=== PATIENT | female | born 1955 | race Caucasian/White ===

== ENCOUNTER → 2016-03-07 | Outpatient (CLI) | payer BC ==
--- NOTE | 2016-03-07 09:23 | BD ---
EXAMINATION TYPE: MG DEXA axial skeleton. DATE OF EXAM: 03/07/2016 9:12 AM COMPARISON: 12.30.2012 CLINICAL HISTORY: Z78.0 POST MENOPAUSAL Height: 63 Weight: 136 FRAX RISK QUESTIONS: Alcohol (3 or more units per day): NO Family History (Parent hip fracture): NO Glucocorticoids (More than 3mos): NO (Ex: prednisone, prednisolone, methylprednisolone, dexamethasone, and hydrocortisone). History of Fracture in Adulthood: NO Secondary Osteoporosis: 1. Type 1 Diabetes: NO 2. Hyperthyroidism: NO 3. Menopause before 45: NO 4. Malnutrition: NO 5. Chronic liver disease: NO Rheumatoid Arthritis: NO Current Tobacco Use: NO RISK FACTORS HISTORY OF: Family History of Osteoporosis: NONE KNOWN Smoke tobacco: NO Drink Alcohol: RARELY Active: YES Diet low in dairy products/other sources of calcium: MAY BE A BIT LOW Postmenopausal woman: 49 Adrenal Insufficiency: NO MEDICATIONS: Thyroid Medications: YES Which medication: SYNTHROID How Lon YRS Additional Medications: CALCIUM AND VIT D, ATIVAN, STATINS FOR CHOLESTEROL Additional History: HYPO THYROID, CHOLESTEROL MEDS EXAM MEASUREMENTS: Bone mineral densitometry was performed using the [employer] System. Bone mineral density as measured about the Lumbar spine is: ----- L1-L4(G/cm2): 1.100 T Score Values are as follows: ----- L1: -0.5 ----- L2: -0.6 ----- L3: -0.8 ----- L4: -0.8 ----- L1-L4: -0.7 Bone mineral density has: Decreased -1.3% since study of: 12.30.2012 Bone mineral density about the R hip (g/cm2): 0.900 Bone mineral density about the L hip (g/cm2): 0.962 T Score values are as follows: -----R Neck: -1.0 -----L Neck: -0.5 -----R Intertrochanter: -1.2 -----L Intertrochanter: -1.1 Bone mineral density has: Decreased -1.4% since study of: 12.30.2012 FRAX%'S: FOR MAJOR OSTEOPOROTIC FX: 7.4%.....FOR HIP FX: 0.5% PROBABILITY OF FX IN 10 YRS TI ME IMPRESSION: Osteopenia (T Score between -2.5 and -1 as noted by T score values There is slightly increased risk of fracture and the patient may be considered for treatment. Re-Screen 1-2 years. FOR BOTH HIPS AT INTERTROCHANTER SITES ONLY NOTE: T-SCORE=SD OF THE YOUNG ADULT MEAN.
--- NOTE | 2016-03-10 07:36 | MM ---
Reason for exam: screening (asymptomatic). Last mammogram was performed 1 year and 1 month ago. History: Patient is postmenopausal. Family history of breast cancer in paternal aunt at age 40. MG discontinued stereo core RT of the right breast, March 22, 2014. Benign US biopsy breast VAD RT of the right breast, March 07, 2014. Physical Findings: A clinical breast exam by your physician is recommended on an annual basis and results should be correlated with mammographic findings. MG 3D Screening Mammo W/Cad Bilateral CC and MLO view(s) were taken. Prior study comparison: February 16, 2015, bilateral MG 3d diag mammo w/cad PANTERA. September 05, 2014, right breast MG diagnostic mammo RT w CAD. March 07, 2014, right breast MG diagnostic mammo RT wo CAD. February 16, 2014, bilateral MG screening mammo w CAD. The breast tissue is heterogeneously dense. This may lower the sensitivity of mammography. Finding: There is a 10 mm circumscribed oval mass in the upper inner quadrant, posterior position of the left breast. Previous mammotome biopsy in the right breast. There is a chronic nodularity in the right axilla. Asymmetric breast tissue in the left anterior position is stable. New finding since February 16, 2015, September 05, 2014, March 07, 2014, and February 16, 2014. ASSESSMENT: Incomplete: need additional imaging evaluation, BI-RAD 0 RECOMMENDATION: Ultrasound of the left breast. [facility] will attempt to contact patient to return for ultrasound.
== END | disposition home or self-care (01) ==
LOC: RADMAMWWP 08:08
PROVIDERS: ATTEND Obstetrics & Gynecology
DX: Z12.31 Encounter for screening mammogram for malignant neoplasm of breast (principal); R92.2 Inconclusive mammogram; M85.80 Other specified disorders of bone density and structure, unspecified site; Z78.0 Asymptomatic menopausal state
CPT/HCPCS: 77080; 77052; 77063; G0202

== ENCOUNTER → 2016-03-27 | Outpatient (CLI) | payer BC ==
--- NOTE | 2016-03-27 09:01 | USB ---
Reason for exam: additional evaluation requested from abnormal screening. History: Patient is postmenopausal. Family history of breast cancer in paternal aunt at age 40. MG discontinued stereo core RT of the right breast, March 22, 2014. Benign US biopsy breast VAD RT of the right breast, March 07, 2014. Physical Findings: Nurse did not find any significant physical abnormalities on exam. US Breast Workup LT Left breast ultrasound including all four quadrants, the retroareolar region and axilla demonstrates a 0.3 x 0.4 x 0.3cm oval, solid, hyperechoic lesion at 12 o'clock, lipoma at 12 o'clock. These results were verbally communicated with the patient and result sheet given to the patient on 03/27/16. ASSESSMENT: Probably benign, BI-RAD 3 RECOMMENDATION: Follow-up diagnostic mammogram and ultrasound of the left breast in 6 months.
== END | disposition home or self-care (01) ==
LOC: RADUSWWP 06:58
PROVIDERS: ATTEND Obstetrics & Gynecology
DX: R92.8 Other abnormal and inconclusive findings on diagnostic imaging of breast (principal)

== ENCOUNTER → 2016-10-09 | Outpatient (CLI) | payer BC, OTHER ==
--- NOTE | 2016-10-09 09:36 | MM ---
Reason for exam: follow-up at short interval from prior study. Last mammogram was performed 7 months ago. History: Patient is postmenopausal. Family history of breast cancer in paternal aunt at age 40. MG discontinued stereo core RT of the right breast, March 22, 2014. Benign US biopsy breast VAD RT of the right breast, March 07, 2014. Physical Findings: Nurse did not find any significant physical abnormalities on exam. MG 3D Diag Mammo W/Cad LT CC and MLO view(s) were taken of the left breast. Prior study comparison: March 27, 2016, left breast US breast workup LT. March 07, 2016, bilateral MG 3d screening mammo w/cad. February 16, 2015, bilateral MG 3d diag mammo w/cad PANTERA. The breast tissue is heterogeneously dense. This may lower the sensitivity of mammography. No significant new findings when compared with previous films. These results were verbally communicated with the patient and result sheet given to the patient on 10/09/16. ASSESSMENT: Benign, BI-RAD 2 RECOMMENDATION: Return to routine screening mammogram schedule for both breasts. Back on schedule for March 2017.
--- NOTE | 2016-10-09 09:38 | USB ---
Reason for exam: follow-up at short interval from prior study. History: Patient is postmenopausal. Family history of breast cancer in paternal aunt at age 40. MG discontinued stereo core RT of the right breast, March 22, 2014. Benign US biopsy breast VAD RT of the right breast, March 07, 2014. US Breast LT Left breast ultrasound includes all four quadrants, the retroareolar region and axilla. Finding demonstrates no cystic or solid lesion seen. These results were verbally communicated with the patient and result sheet given to the patient on 10/09/16. ASSESSMENT: Negative, BI-RAD 1 RECOMMENDATION: Return to routine screening mammogram schedule for both breasts. Back on schedule for March 2017.
== END | disposition home or self-care (01) ==
LOC: RADMAMWWP 08:04
PROVIDERS: ATTEND Family Medicine
DX: N63 Unspecified lump in breast (principal)
CPT/HCPCS: 76641; G0206; G0279

== ENCOUNTER → 2017-04-22 | Outpatient (CLI) | payer OTHER ==
--- NOTE | 2017-04-22 09:41 | MM ---
Reason for exam: follow-up at short interval from prior study. Last mammogram was performed 6 months ago. History: Patient is postmenopausal. Family history of breast cancer in paternal aunt at age 40. MG discontinued stereo core RT of the right breast, March 22, 2014. Benign US biopsy breast VAD RT of the right breast, March 07, 2014. Physical Findings: Nurse did not find any significant physical abnormalities on exam. MG 3D Diag Mammo W/Cad PANTERA Bilateral CC and MLO view(s) were taken. Prior study comparison: October 09, 2016, left breast MG 3d diag mammo w/cad LT. March 07, 2016, bilateral MG 3d screening mammo w/cad. The breast tissue is heterogeneously dense. This may lower the sensitivity of mammography. Previous mammotome biopsy in the right breast. There is no discrete abnormality. These results were verbally communicated with the patient and result sheet given to the patient on 04/22/17. ASSESSMENT: Benign, BI-RAD 2 RECOMMENDATION: Routine screening mammogram of both breasts in 1 year. Manage on a clinical basis with regard to right palpable.
--- NOTE | 2017-04-22 09:43 | USB ---
Reason for exam: follow-up at short interval from prior study. History: Patient is postmenopausal. Family history of breast cancer in paternal aunt at age 40. MG discontinued stereo core RT of the right breast, March 22, 2014. Benign US biopsy breast VAD RT of the right breast, March 07, 2014. US Breast RT Right breast ultrasound includes all four quadrants, the retroareolar region and axilla. Finding demonstrates a 1.7 x 1.3 x 0.9cm oval, lobular, solid lesion at 12 o'clock stable from 2013 presumed benign lipoma, a 0.4 x 0.4 x 0.3cm oval, node at 9 o'clock benign lymph node and multiple benign lymph nodes at the axilla. These results were verbally communicated with the patient and result sheet given to the patient on 04/22/17. ASSESSMENT: Benign, BI-RAD 2 RECOMMENDATION: Routine screening mammogram of both breasts in 1 year. Manage on a clinical basis with regard to right axilla palpable.
== END | disposition home or self-care (01) ==
LOC: RADMAMWWP 08:16
PROVIDERS: ATTEND Obstetrics & Gynecology
DX: N63.12 Unspecified lump in the right breast, upper inner quadrant (principal)
CPT/HCPCS: 77066; 76641; G0279

== ENCOUNTER → 2018-04-18 | Outpatient (CLI) | payer OTHER | END | disposition home or self-care (01) | LOC: RADXRMAIN 11:29 | PROVIDERS: ATTEND Nurse Practitioner Family | DX: Z53.9 Procedure and treatment not carried out, unspecified reason (principal) ==

== ENCOUNTER → 2018-04-20 | Outpatient (CLI) | payer OTHER ==
--- NOTE | 2018-04-20 18:31 | CT ---
EXAMINATION TYPE: CT abdomen pelvis wo con DATE OF EXAM: 04/20/2018 COMPARISON: None HISTORY: Right side flank pain and hematuria. CT DLP: 651 mGycm Automated exposure control for dose reduction was used. TECHNIQUE: Helical acquisition of images was performed from the lung bases through the pelvis. FINDINGS: Within the limitations of noncontrast CT the following findings are noted. LUNG BASES: No significant abnormality is appreciated. LIVER/GB: No significant abnormality is appreciated. PANCREAS: No significant abnormality is seen. SPLEEN: No significant abnormality is seen. ADRENALS: No significant abnormality is seen. KIDNEYS: No significant abnormality is seen. Bilateral parapelvic cysts are noted, but no hydronephro sis or hydroureter. FREE AIR: No free air is visualized RETROPERITONEAL ADENOPATHY: None visualized REPRODUCTIVE ORGANS: No significant abnormality is seen URINARY BLADDER: No significant abnormality is seen. PELVIC ADENOPATHY: None visualized. OSSEOUS STRUCTURES: No significant abnormality is seen. BOWEL: No significant abnormality is seen. IMPRESSION: NO ACUTE PROCESS.
--- NOTE | 2018-04-21 08:08 | XR ---
EXAMINATION TYPE: XR lumbar spine 2 or 3V DATE OF EXAM: 04/20/2018 CLINICAL HISTORY: Low back pain after fall TECHNIQUE: Frontal and lateral views of the lumbar spine were obtained COMPARISON: None FINDINGS: There are 5 lumbar type vertebral bodies identified. There is a mild dextroscoliosis of th e lumbar spine may could be positional. Mild multilevel degenerative changes are seen at L4-L5 and L5 -S1 as intervertebral disc space narrowing and facet arthropathy. The lumbar spine shows satisfactor y alignment without evidence of acute fracture or dislocation. Vertebral body heights and disk space heights are within normal limits. The overlying soft tissue appears unremarkable. IMPRESSION: No acute fracture or dislocation is seen in the lumbar spine. Mild multilevel degenerati ve disc disease of the lower lumbar spine and slight dextroscoliosis that could be positional.
== END | disposition home or self-care (01) ==
LOC: RADCTMAIN 17:13
PROVIDERS: ATTEND Physician Assistant
DX: Z09 Encounter for follow-up examination after completed treatment for conditions other than malignant neoplasm (principal); Z87.448 Personal history of other diseases of urinary system
CPT/HCPCS: 72100; 74176

== ENCOUNTER → 2018-05-13 | Outpatient (CLI) | payer OTHER ==
--- NOTE | 2018-05-13 09:25 | BD ---
EXAMINATION TYPE: Axial Bone Density DATE OF EXAM: 05/13/2018 COMPARISON: 03.07.2016 DEXA bone scan. CLINICAL HISTORY: 63 YR OLD FEMALE....ICD-10 CODE: Z78.0 POST CHARLES W/O HRT Height: 63.5 Weight: 135 FRAX RISK QUESTIONS: NOTHING TO NOTE HERE RISK FACTORS HISTORY OF: Family History of Osteoporosis: UNSURE Diet low in dairy products/other sources of calcium: YES, A BIT Postmenopausal woman: YES AT AGE 49 YR OLD MEDICATIONS: Thyroid Medications: YES, SYNTHROID, FOR ABOUT 12 YRS Additional Medications: ATIVAN, PRN, STATINS FOR CHOLESTEROL, VIT D AND MULTI VAMIN Additional History: CHOLESTEROL, EXAM MEASUREMENTS: Bone mineral densitometry was performed using the [employer] System. Bone mineral density as measured about the Lumbar spine is: ----- L1-L4(G/cm2): 1.037 T Score Values are as follows: ----- L1: -1.0 ----- L2: -1.6 ----- L3: -1.2 ----- L4: -1.2 ----- L1-L4: -1.2 Bone mineral density has: Decreased -6.0% since study of: 03.07.2016 Bone mineral density about the R hip (g/cm2): 0.909 Bone mineral density about the L hip (g/cm2): 0.893 T Score values are as follows: -----R Neck: -1.1 -----L Neck: -0.9 -----R Total: -0.8 -----L Total: -0.9 Bone mineral density has: Decreased -2.6% since study of: 03.07.2016 FRAX%s: THERE IS A 7.8% CHANCE FOR A MAJOR OSTEOPOROTIC FX AND A 0.6% FOR HIP .....PROBABILITY OF F X IN 10 YRS TIME IMPRESSION: Osteopenia (T Score between -2.5 and -1) remains present in the low back and is now present femoral n ashlee level right hip. Bone density noted decreased or diminished from prior. There remains slightly increased risk of fracture and the patient may be considered for treatment. Re-Screen 2-5 years. NOTE: T-SCORE=SD OF THE YOUNG ADULT MEAN.
--- NOTE | 2018-05-14 10:12 | MM ---
Reason for exam: screening (asymptomatic). Last mammogram was performed 1 year and 1 month ago. History: Patient is postmenopausal. Family history of breast cancer in paternal aunt at age 40. MG discontinued stereo core RT of the right breast, March 22, 2014. Benign US biopsy breast VAD RT of the right breast, March 07, 2014. Physical Findings: A clinical breast exam by your physician is recommended on an annual basis and results should be correlated with mammographic findings. MG 3D Screening Mammo W/Cad Bilateral CC and MLO view(s) were taken. Prior study comparison: April 22, 2017, bilateral MG 3d diag mammo w/cad PANTERA. October 09, 2016, left breast MG 3d diag mammo w/cad LT. The breast tissue is heterogeneously dense. This may lower the sensitivity of mammography. No significant changes when compared with prior studies. ASSESSMENT: Benign, BI-RAD 2 RECOMMENDATION: Routine screening mammogram of both breasts in 1 year.
== END | disposition home or self-care (01) ==
LOC: RADMAMWWP 08:12
PROVIDERS: ATTEND Obstetrics & Gynecology
DX: Z12.31 Encounter for screening mammogram for malignant neoplasm of breast (principal); M85.851 Other specified disorders of bone density and structure, right thigh; M85.88 Other specified disorders of bone density and structure, other site; Z78.0 Asymptomatic menopausal state; Z80.3 Family history of malignant neoplasm of breast
CPT/HCPCS: 77063; 77067; 77080

== ENCOUNTER → 2018-10-15 | Outpatient (CLI) | payer OTHER ==
--- NOTE | 2018-10-15 11:38 | CT ---
EXAMINATION TYPE: CT abdomen pelvis wo con DATE OF EXAM: 10/15/2018 COMPARISON: 04/20/2018 HISTORY: Lt flank pain, now moved to the Rt side CT DLP: 275.8 mGycm Automated exposure control for dose reduction was used. TECHNIQUE: Helical acquisition of images was performed from the lung bases through the pelvis. FINDINGS: LUNG BASES: No significant abnormality is appreciated. LIVER/GB: No significant abnormality is appreciated. PANCREAS: No significant abnormality is seen. SPLEEN: No significant abnormality is seen. ADRENALS: No significant abnormality is seen. KIDNEYS: No nephrolithiasis. No hydronephrosis. Bilateral parapelvic cysts. FREE AIR: No free air is visualized RETROPERITONEAL ADENOPATHY: None visualized REPRODUCTIVE ORGANS: No significant abnormality is seen URINARY BLADDER: No significant abnormality is seen. PELVIC ADENOPATHY: None visualized. OSSEOUS STRUCTURES: No significant abnormality is seen. BOWEL: No significant abnormality is seen. IMPRESSION: NO ACUTE PROCESS WITHIN THE ABDOMEN OR PELVIS. NO NEPHROLITHIASIS.
== END ==
LOC: RADCTMAIN 09:52
PROVIDERS: ATTEND Family Medicine
DX: R10.9 Unspecified abdominal pain (principal)
CPT/HCPCS: 74176

== ENCOUNTER → 2019-05-07 | Outpatient (CLI) | payer MEDICARE ==
--- NOTE | 2019-05-10 08:28 | MM ---
Reason for exam: screening (asymptomatic). Last mammogram was performed 1 year ago. History: Patient is postmenopausal. Family history of breast cancer in paternal aunt at age 40. MG discontinued stereo core RT of the right breast, March 22, 2014. Benign US biopsy breast VAD RT of the right breast, March 07, 2014. Physical Findings: A clinical breast exam by your physician is recommended on an annual basis and results should be correlated with mammographic findings. MG 3D Screening Mammo W/Cad Bilateral CC and MLO view(s) were taken. Prior study comparison: May 13, 2018, bilateral MG 3d screening mammo w/cad. April 22, 2017, bilateral MG 3d diag mammo w/cad PANTERA. The breast tissue is heterogeneously dense. This may lower the sensitivity of mammography. Previous mammotome biopsy in the right breast. There is chronic nodularity in the right breast. 8 o'clock focal asymmetry incompletely disperses in the right on 3D images, and looks more defined from priors. ASSESSMENT: Incomplete: need additional imaging evaluation, BI-RAD 0 RECOMMENDATION: Special view mammogram of the right breast. (3D) If lesion persists on supplemental views, image directed ultrasound is recommended. [facility] will attempt to contact patient to return for supplemental views and ultrasound if indicated.
== END | disposition home or self-care (01) ==
LOC: RADMAMWWP 10:52
PROVIDERS: ATTEND Family Medicine
DX: Z12.31 Encounter for screening mammogram for malignant neoplasm of breast (principal)
CPT/HCPCS: 77063; 77067

== ENCOUNTER → 2019-05-13 | Outpatient (CLI) | payer MEDICARE ==
--- NOTE | 2019-05-13 14:18 | MM ---
Reason for exam: additional evaluation requested from abnormal screening. Last mammogram was performed less than 1 month ago. History: Patient is postmenopausal and history of other cancer. Family history of breast cancer in paternal aunt at age 40. MG discontinued stereo core RT of the right breast, March 22, 2014. Benign US biopsy breast VAD RT of the right breast, March 07, 2014. Physical Findings: Nurse did not find any significant physical abnormalities on exam. MG 3D Work Up W/Cad RT Spot compression CC, spot compression MLO, and ML view(s) were taken of the right breast. Prior study comparison: May 07, 2019, bilateral MG 3d screening mammo w/cad. May 13, 2018, bilateral MG 3d screening mammo w/cad. The breast tissue is heterogeneously dense. This may lower the sensitivity of mammography. The previously seen abnormality resolves on additional views and appears as fibroglandular tissue compatible with summation. Right biopsy marker noted. These results were verbally communicated with the patient and result sheet given to the patient on 05/13/19. ASSESSMENT: Negative, BI-RAD 1 RECOMMENDATION: Return to routine screening mammogram schedule for both breasts.
== END | disposition home or self-care (01) ==
LOC: RADMAMWWP 13:34
PROVIDERS: ATTEND Family Medicine
DX: R92.8 Other abnormal and inconclusive findings on diagnostic imaging of breast (principal)
CPT/HCPCS: 77065; G0279; 77061

== ENCOUNTER → 2020-05-17 | Outpatient (CLI) | payer MEDICARE ==
--- NOTE | 2020-05-21 11:03 | MM ---
Reason for exam: screening (asymptomatic). Last mammogram was performed 1 year ago. History: Patient is postmenopausal and history of other cancer. Family history of breast cancer in paternal aunt at age 40. MG discontinued stereo core RT of the right breast, March 22, 2014. Benign US biopsy breast VAD RT of the right breast, March 07, 2014. Physical Findings: A clinical breast exam by your physician is recommended on an annual basis and results should be correlated with mammographic findings. MG 3D Screening Mammo W/Cad Bilateral CC, MLO, and XCCL view(s) were taken. Prior study comparison: May 13, 2019, right breast MG 3d work up w/cad RT. May 07, 2019, bilateral MG 3d screening mammo w/cad. The breast tissue is heterogeneously dense. This may lower the sensitivity of mammography. Previous mammotome biopsy in the right breast. There is chronic nodularity in the right breast. No significant changes when compared with prior studies. ASSESSMENT: Benign, BI-RAD 2 RECOMMENDATION: Routine screening mammogram of both breasts in 1 year.
== END | disposition home or self-care (01) ==
LOC: RADMAMWWP 10:59
PROVIDERS: ATTEND Family Medicine
DX: Z12.31 Encounter for screening mammogram for malignant neoplasm of breast (principal)
CPT/HCPCS: 77063; 77067

== ENCOUNTER → 2020-07-27 | Outpatient (CLI) | payer MEDICARE | END | disposition home or self-care (01) | LOC: LABWHC1 10:59 | PROVIDERS: ATTEND Physician Assistant | DX: U07.1 COVID-19 (principal) | CPT/HCPCS: 36415; 86769 ==

== ENCOUNTER → 2021-06-06 | Outpatient (CLI) | payer MEDICARE ==
--- NOTE | 2021-06-10 10:57 | MM ---
Reason for exam: screening (asymptomatic). Last mammogram was performed 1 year and 1 month ago. History: Patient is postmenopausal and history of other cancer. Family history of breast cancer in paternal aunt at age 40. MG discontinued stereo core RT of the right breast, March 22, 2014. Benign US biopsy breast VAD RT of the right breast, March 07, 2014. Physical Findings: A clinical breast exam by your physician is recommended on an annual basis and results should be correlated with mammographic findings. MG 3D Screening Mammo W/Cad Bilateral CC and MLO view(s) were taken. Prior study comparison: May 17, 2020, bilateral MG 3d screening mammo w/cad. May 13, 2019, right breast MG 3d work up w/cad RT. The breast tissue is heterogeneously dense. This may lower the sensitivity of mammography. Previous mammotome biopsy in the right breast. There is chronic nodularity bilaterally. No significant changes when compared with prior studies. ASSESSMENT: Benign, BI-RAD 2 RECOMMENDATION: Routine screening mammogram of both breasts in 1 year. Patient should continue monthly self breast exams. A negative report should not preclude additional follow up of suspicious palpable abnormalities.
== END | disposition home or self-care (01) ==
LOC: RADMAMWWP 13:20
PROVIDERS: ATTEND Obstetrics & Gynecology
DX: Z12.31 Encounter for screening mammogram for malignant neoplasm of breast (principal)
CPT/HCPCS: 77063; 77067

== ENCOUNTER → 2021-11-05 | Outpatient (CLI) | payer MEDICARE ==
[2021-11-05 14:45] LABS: Basophils # (A) 0.09 X 10*3/uL (0.00-0.10); Basophils % (A) 1.4 %; Eosinophils # (A) 0.25 X 10*3/uL (0.04-0.35); HCT 37.2 % (37.2-46.3); HGB 12.8 g/dL (12.0-15.0); Immature Grans, Automated 0.2 %; Lymphocytes # (A) 2.37 X 10*3/uL (0.90-5.00); Lymphocytes % (A) 37.7 %; MCH 30.5 pg (27.0-32.0); MCHC 34.4 g/dL (32.0-37.0); MCV 88.6 fL (80.0-97.0); Mean Platelet Volume 10.3 fL (9.5-12.2); Monocytes # (A) 0.62 X 10*3/uL (0.20-1.00); Monocytes % (A) 9.9 %; NRBC Per 100 WBC 0 /100 WBCS (0.0-0.0); Neutrophils # (A) 2.94 X 10*3/uL (1.80-7.70); Neutrophils % (A) 46.8 %; Platelet Count 302 X 10*3/uL (140-440); RDW 12.2 % (11.5-14.5); WBC 6.28 X 10*3/uL (4.50-10.00)
[2021-11-05 16:20] LABS: ALT 20 U/L (8-44); AST 19 U/L (13-35); African American GFR (CKD) 106.3 (60.0-200.0); Albumin 4.8 g/dL (3.8-4.9); Albumin/Globulin Ratio 1.99 (1.60-3.17); Alkaline Phosphatase 140 U/L (41-126); BUN/Creat Ratio 18.04 Ratio (12.00-20.00); Blood Urea Nitrogen 11.8 mg/dL (9.0-27.0); Calcium 9.8 mg/dL (8.7-10.3); Carbon Dioxide 25.6 mmol/L (20.0-27.5); Chloride 103 mmol/L (96-109); Chol/HDL Ratio 4.82 Ratio; Globulin 2.4 g/dL (1.6-3.3); Glucose 96 mg/dL (70-110); LDL Cholesterol,Calculated 111.6 mg/dL (0.0-131.0); Non-African American GFR(CKD) 91.7 (60.0-200.0); Potassium 4.3 mmol/L (3.5-5.5); Sodium 138 mmol/L (135-145); Total Protein 7.1 g/dL (6.2-8.2)
== END | disposition home or self-care (01) ==
LOC: LABWHC1 09:42
PROVIDERS: ATTEND Internal Medicine
DX: E78.5 Hyperlipidemia, unspecified (principal); E06.3 Autoimmune thyroiditis; E55.9 Vitamin D deficiency, unspecified
CPT/HCPCS: 36415; 80053; 80061; 82306; 84439; 84443; 85025

== ENCOUNTER → 2022-06-09 | Outpatient (CLI) | payer MEDICARE ==
--- NOTE | 2022-06-10 09:26 | MM ---
Reason for Exam: Screening (asymptomatic). Last screening mammogram was performed 12 month(s) ago. Patient History: Menarche at age 12. First Full-Term at age 22. Postmenopausal. Other cancer. 03/07/2014, Benign Core Biopsy on the right side. 03/22/2014, MG discontinued stereo core RT on the right side. Paternal aunt had breast cancer, age 40. Risk Values: Caitlin 5 year model risk: 1.8%. NCI Lifetime model risk: 5.9%. Prior Study Comparison: 05/13/2019 Right Diagnostic Mammogram, [facility]. 05/17/2020 Bilateral Screening Mammogram, [facility]. 06/06/2021 Bilateral Screening Mammogram, [facility]. Tissue Density: The breast tissue is heterogeneously dense. This may lower the sensitivity of mammography. Findings: Analyzed By CAD. There is no suspicious group of microcalcifications or new suspicious mass in either breast. Overall Assessment: Benign, BI-RAD 2 Management: Screening Mammogram of both breasts in 1 year. A clinical breast exam by your physician is recommended on an annual basis and results should be correlated with mammographic findings. Electronically signed and approved by: Robbin Blackburn M.D. Radiologis
== END | disposition home or self-care (01) ==
LOC: RADMAMWWP 13:06
PROVIDERS: ATTEND Obstetrics & Gynecology
DX: Z12.31 Encounter for screening mammogram for malignant neoplasm of breast (principal); Z78.0 Asymptomatic menopausal state; Z80.3 Family history of malignant neoplasm of breast
CPT/HCPCS: 77063; 77067

== ENCOUNTER → 2022-07-02 | Outpatient (CLI) | payer MEDICARE | END | disposition home or self-care (01) | LOC: LABWHC1 07:01 | PROVIDERS: ATTEND Family Medicine | DX: E16.2 Hypoglycemia, unspecified (principal) | CPT/HCPCS: 36415; 83525; 84305; 86337 ==

== ENCOUNTER → 2023-06-12 | Outpatient (CLI) | payer MEDICARE ==
--- NOTE | 2023-06-16 13:52 | MM ---
Reason for Exam: Screening (asymptomatic). Last screening mammogram was performed 12 month(s) ago. Patient History: Menarche at age 12. First Full-Term at age 22. Postmenopausal. Other cancer. 03/07/2014, Benign Core Biopsy on the right side. 03/22/2014, MG discontinued stereo core RT on the right side. Paternal aunt had breast cancer, age 40. Paternal aunt tested for BRCA1 outcome was negative. Risk Values: Caitlin 5 year model risk: 1.8%. NCI Lifetime model risk: 5.6%. Prior Study Comparison: 04/22/2017 Bilateral Diagnostic Mammogram, [facility]. 05/13/2018 Bilateral Screening Mammogram, [facility]. 05/07/2019 Bilateral Screening Mammogram, [facility]. 05/13/2019 Right Diagnostic Mammogram, [facility]. 05/17/2020 Bilateral Screening Mammogram, [facility]. 06/06/2021 Bilateral Screening Mammogram, [facility]. 06/09/2022 Bilateral MG 3D screening mammo w/cad, [facility]. Tissue Density: The breasts are heterogeneously dense, which may obscure small masses. Findings: Analyzed By CAD. Right breast biopsy clip. Right breast: There is no suspicious group of microcalcifications or new suspicious mass. Left breast: There is no suspicious group of microcalcifications or new suspicious mass. Overall Assessment: Negative, BI-RAD 1 Management: Screening Mammogram of both breasts in [address] [facility] will attempt to contact patient to return for supplemental views and ultrasound if indicated. Patient should continue monthly self-breast exams. A clinical breast exam by your physician is recommended on an annual basis. This exam should not preclude additional follow-up of suspicious palpable abnormalities. Note on Caitlin scores and lifetime risk: 1. A Caitlin score greater than 3% is considered moderate risk. If this is the case, consider specialist referral to assess eligibility for a risk reducing agent. 2. If overall lifetime risk for the development of breast cancer is 20% or higher, the patient may qualify for future screening with alternating mammogram and breast MRI. Electronically signed and approved by: Esa Mills DO
== END | disposition home or self-care (01) ==
LOC: RADMAMWWP 09:33
PROVIDERS: ATTEND Family Medicine
DX: Z12.31 Encounter for screening mammogram for malignant neoplasm of breast (principal); Z80.3 Family history of malignant neoplasm of breast; Z78.0 Asymptomatic menopausal state
CPT/HCPCS: 77063; 77067

== ENCOUNTER → 2023-11-12 | Outpatient (CLI) | payer MEDICARE ==
--- NOTE | 2023-11-12 16:14 | US ---
EXAMINATION TYPE: US thyroid st tissue head/neck DATE OF EXAM: 11/12/2023 COMPARISON: NONE CLINICAL INDICATION: Female, 68 years old with history of R22.1 SWELLING MASS LUMP; Pain right neck. Hypothyroidism, patient on medication GLAND SIZE: Right Lobe: 3.6 x 1.2 x 1.3 cm Overall Parenchyma: heterogeneous Left Lobe: 3.7 x 1.4 x 1.2 cm Overall Parenchyma: heterogeneous Isthmus Thickness: 0.2 cm NODULES RIGHT: # of nodules measured on right: 0 LEFT: # of nodules measured on left: 0 ISTHMUS: # of nodules measured in the isthmus: 0 Bilateral neck scanned, lymph nodes visualized bilaterally IMPRESSION: Thyroid tissue is heterogeneous which can be associated with thyroiditis. No sizable thyroid nodules. 2017 ACR TI-RADS LEVEL: TR-RADS 1 - BENIGN: No FNA *Highest TI-RADS level nodule reported
== END | disposition home or self-care (01) ==
LOC: RADUSWWP 15:23
PROVIDERS: ATTEND Family Medicine
DX: R22.1 Localized swelling, mass and lump, neck
CPT/HCPCS: 76536

== ENCOUNTER → 2024-06-15 | Outpatient (CLI) | payer MEDICARE ==
--- NOTE | 2024-06-15 14:18 | MM ---
Reason for Exam: Screening (asymptomatic). Last screening mammogram was performed 12 month(s) ago. Patient History: Menarche at age 12. First Full-Term at age 22. Postmenopausal. 03/07/2014, Benign Core Biopsy on the right side. 03/22/2014, MG discontinued stereo core RT on the right side. Paternal aunt had breast cancer, age 40. Paternal aunt tested for BRCA1 outcome was negative. Risk Values: Caitlin 5 year model risk: 1.8%. NCI Lifetime model risk: 5.3%. Prior Study Comparison: 06/06/2021 Bilateral Screening Mammogram, [facility]. 06/09/2022 Bilateral MG 3D screening mammo w/cad, [facility]. 06/12/2023 Bilateral MG 3D screening mammo w/cad, [facility]. Tissue Density: The breasts are heterogeneously dense, which may obscure small masses. Findings: Analyzed By CAD. There is no suspicious group of microcalcifications or new suspicious mass in either breast. Overall Assessment: Benign, BI-RAD 2 Management: Screening Mammogram of both breasts in 1 year. . Patient should continue monthly self-breast exams. A clinical breast exam by your physician is recommended on an annual basis. This exam should not preclude additional follow-up of suspicious palpable abnormalities. Note on Caitlin scores and lifetime risk: 1. A Caitlin score greater than 3% is considered moderate risk. If this is the case, consider specialist referral to assess eligibility for a risk reducing agent. 2. If overall lifetime risk for the development of breast cancer is 20% or higher, the patient may qualify for future screening with alternating mammogram and breast MRI. [facility], , 06/15/2024 2:16 PM. Electronically signed and approved by: Robbin Blackburn M.D. [facility]
== END | disposition home or self-care (01) ==
LOC: RADMAMWWP 13:02
PROVIDERS: ATTEND Family Medicine
DX: Z12.31 Encounter for screening mammogram for malignant neoplasm of breast (principal); R92.333 Mammographic heterogeneous density, bilateral breasts; Z78.0 Asymptomatic menopausal state; Z80.3 Family history of malignant neoplasm of breast
CPT/HCPCS: 77063; 77067